=== PATIENT | male | born 1955 ===

== ENCOUNTER 2022-04-24 07:55 | Outpatient (REF) | payer BC, SELFPAY ==
--- NOTE | ~2022-04-24 | XR_ITS ---
EXAMINATION: XR AP STANDING VIEW BOTH KNEES. XR KNEE, LEFT CLINICAL INFORMATION: Left knee pain COMPARISON: None TECHNIQUE: AP standing views of both knees. 2 views of the left knee FINDINGS: Osteopenia. Mild narrowing of the medial compartment of both knees which appears symmetric. No left knee joint effusion. No fracture. XR/XR knee standing BI IMPRESSION: Osteopenia. Mild medial compartment osteoarthritis.
--- NOTE | ~2022-04-24 | XR_ITS ---
EXAMINATION: XR AP STANDING VIEW BOTH KNEES. XR KNEE, LEFT CLINICAL INFORMATION: Left knee pain COMPARISON: None TECHNIQUE: AP standing views of both knees. 2 views of the left knee FINDINGS: Osteopenia. Mild narrowing of the medial compartment of both knees which appears symmetric. No left knee joint effusion. No fracture. XR/XR knee LT 2V IMPRESSION: Osteopenia. Mild medial compartment osteoarthritis.
--- NOTE | ~2022-04-24 | XR_ITS ---
EXAMINATION: XR HIP, LEFT CLINICAL INFORMATION: Left hip pain COMPARISON: None TECHNIQUE: AP radiograph of the pelvis. AP and frog-lateral views of the left hip. FINDINGS: Mild symmetric joint space narrowing with no fracture or malalignment. Osteopenia. No suspicious bone lesion or soft tissue calcification. XR/XR hip LT w [id number] IMPRESSION: Mild bilateral hip arthritis.
== END 2022-04-24 07:56 | disposition home or self-care (01) ==
LOC: HO.HOSX 07:55
PROVIDERS: Visit Provider Physician Assistant
DX: M25.562 Pain in left knee (principal); M25.552 Pain in left hip
CPT/HCPCS: 73502; 73560; 73565